=== PATIENT | male | born 1930 | race Caucasian/White ===

== ENCOUNTER 2018-10-17 04:31 | Outpatient (CLI) ==
[2018-10-17 05:06] VITALS: BMI 31.3
== END 2018-10-17 04:37 | disposition critical access hospital (66) ==
LOC: AMBL 04:31
PROVIDERS: ATTEND Family Medicine
DX: R06.02 Shortness of breath (principal); R25.1 Tremor, unspecified; I49.3 Ventricular premature depolarization; Z95.1 Presence of aortocoronary bypass graft

== ENCOUNTER 2018-10-17 04:43 | Emergency (ER) ==
--- NOTE | 2018-10-17 04:55 | ED.PDOC ---
General ED Provider: Dr. DANA GUTIERREZ MD Chief Complaint: Shortness of Air Stated Complaint: hard to breathe Time Seen by Physician: 04:50 Mode of Arrival: Ambulance Information Source: Family Exam Limitations: No limitations Nursing and Triage Documentation Reviewed and Agree: Yes Does patient meet sepsis criteria?: No If yes, has appropriate treatment been initiated?: Yes System Inflammatory Response Syndrome: Temp 101F or Greater, Resp >20/Minute Sepsis Protocol: For patient's 13 years and over: Temp is 96.8 and below OR 101 and greater Pulse >90 BPM Resp >20/minute Acutely Altered Mental Status Are patient's symptoms suggestive of a new infection, such as: -Pneumonia -Skin, Soft Tissue -Endocarditis -UTI -Bone, Joint Infection -Implantable Device -Acute Abdominal Infection -Wound Infection -Meningitis -Blood Stream Catheter Infection -Unknown Review of Systems - Review Of Systems Constitutional: Reports: Chills Eyes: Reports: No symptoms Ears, Nose, Mouth, Throat: Reports: No symptoms Respiratory: Reports: Cough, Short of air Cardiac: Reports: No symptoms GI: Reports: No symptoms : Reports: No symptoms Musculoskeletal: Reports: No symptoms Skin: Reports: No symptoms Neurological: Reports: No symptoms Endocrine: Reports: No symptoms Hematologic/Lymphatic: Reports: No symptoms All Other Systems: Reviewed and Negative Past Medical History - Past Medical History Previously Healthy: Yes Endocrine: Reports: None 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, Other (s/p CABG) Respiratory: Reports: None Hematological: Reports: None Gastrointestinal: Reports: None Genitourinary: Reports: None Neuro/Psych: Reports: None Musculoskeletal: Reports: None Cancer: Reports: None - Surgical History General Surgical History: Reports: CABG - Family History Family History: Reports: Unknown - Social History Smoking Status: Former smoker Physical Exam - Physical Exam Appearance: Well-appearing, Obese Ill-appearing: Mild Pain Distress: None Eyes: MIHAELA, EOMI, Conjunctiva clear ENT: Ears normal, Nose normal, Oropharynx normal Neck: Supple Respiratory: Breath sounds diminished, Wheezes Cardiovascular: RRR, Pulses normal, No rub, No murmur GI/: Soft, Nontender, No masses, Bowel sounds normal, No Organomegaly Musculoskeletal: Normal strength, ROM intact, No edema, No calf tenderness Skin: Warm, Dry, Normal color Neurological: Sensation intact, Motor intact, Reflexes intact, Cranial nerves intact, Alert, Oriented Psychiatric: Affect appropriate, Mood appropriate Critical Care Note - Critical Care Note Total Time (mins): 0 Course - Course Hematology/Chemistry: 10/17/18 05:10 10/17/18 05:10 Orders, Labs, Meds: Lab Review 10/17/18 10/17/18 10/17/18 05:10 05:10 05:10 WBC 10.90 H RBC 5.35 Hgb 16.3 Hct 48.7 MCV 91.0 MCH 30.5 MCHC 33.5 RDW Coeff of Rommel 12.1 Plt Count 117 L Immature Gran % (Auto) 0.4 Neut % (Auto) 88.6 Lymph % (Auto) 5.8 L Knox % (Auto) 4.4 Eos % (Auto) 0.6 Baso % (Auto) 0.2 Immature Gran # (Auto) 0.0 Neut # (Auto) 9.7 H Lymph # (Auto) 0.6 Knox # (Auto) 0.5 Eos # (Auto) 0.1 Baso # (Auto) 0.0 PT INR Sodium 137.6 Potassium 3.76 Chloride 98.9 Carbon Dioxide 27.0 Anion Gap 15.46 BUN 19.5 Creatinine 1.15 H Estimated GFR (MDRD) 60.00 BUN/Creatinine Ratio 16.95 Glucose 118.3 H Calcium 9.19 Troponin I < 0.012 Urine Color Urine Clarity Urine pH Ur Specific Barnum Urine Protein Urine Glucose (UA) Urine Ketones Urine Blood Urine Nitrite Urine Bilirubin Urine Urobilinogen Ur Leukocyte Esterase 10/17/18 10/17/18 05:20 05:40 WBC RBC Hgb Hct MCV MCH MCHC RDW Coeff of Rommel Plt Count Immature Gran % (Auto) Neut % (Auto) Lymph % (Auto) Knox % (Auto) Eos % (Auto) Baso % (Auto) Immature Gran # (Auto) Neut # (Auto) Lymph # (Auto) Knox # (Auto) Eos # (Auto) Baso # (Auto) PT 10.0 INR 1.00 Sodium Potassium Chloride Carbon Dioxide Anion Gap BUN Creatinine Estimated GFR (MDRD) BUN/Creatinine Ratio Glucose Calcium Troponin I Urine Color Yellow Urine Clarity Clear Urine pH 6.0 Ur Specific Barnum 1.020 Urine Protein Negative Urine Glucose (UA) Negative Urine Ketones Negative Urine Blood Negative Urine Nitrite Negative Urine Bilirubin Negative Urine Urobilinogen 0.2 Ur Leukocyte Esterase Negative Orders Category Date Time Status ABG DRAW REQUEST Routine CARDIO 10/17/18 04:55 Ordered ABG DRAW REQUEST Stat CARDIO 10/17/18 04:45 Ordered ABG DRAW REQUEST Stat CARDIO 10/17/18 04:55 Ordered EKG-(ED ONLY) Stat CARDIO 10/17/18 05:13 Completed NEBULIZER TREATMENT Stat CARDIO 10/17/18 05:36 Ordered NEBULIZER TREATMENT Stat CARDIO 10/17/18 05:37 Ordered IV [ED IV/MEDIPORT/POWERPORT] .ONCE EMERGENCY 10/17/18 05:47 Active BLOOD CULTURE (ED ONLY) Stat LAB 10/17/18 05:10 Received BMP [BASIC METABOLIC PANEL] Stat LAB 10/17/18 05:10 Completed CBC W/ AUTO DIFF Stat LAB 10/17/18 05:10 Completed PT WITH INR Stat LAB 10/17/18 05:40 Completed TROPONIN I Stat LAB 10/17/18 05:10 Completed UA [URINALYSIS C & S IF INDICATED] Stat LAB 10/17/18 05:20 Completed 0.9 % Sodium Chloride [Saline Flush] MEDS 10/17/18 05:47 Ordered 1 syr IVF PRN PRN Acetaminophen [Tylenol] MEDS 10/17/18 06:30 Discontinued 650 mg PO ONCE STA Albuterol Sulfate 0.042% Neb [Albuterol 0.042% Neb] MEDS 10/17/18 05:36 Discontinued 1 vial NEB ONCE STA Albuterol Sulfate 0.042% Neb [Albuterol 0.042% Neb] MEDS 10/17/18 05:36 Discontinued 1 vial NEB ONCE STA Albuterol Sulfate 0.083% Neb [Albuterol 0.083% Neb] MEDS 10/17/18 05:50 Discontinued 1 vial NEB .STK-MED ONE Ceftriaxone Sodium [Rocephin] MEDS 10/17/18 05:53 Discontinued 1 gm .ROUTE .STK-MED ONE Ceftriaxone Sodium [Rocephin] 1 gm MEDS 10/17/18 05:44 Discontinued 0.9 % Sodium Chloride [Sodium Chloride] 50 ml IV ONCE Methylprednisolone Sod Succ/Pf [Solu-Medrol 125 mg] MEDS 10/17/18 05:52 Discontinued 125 mg IVP ONCE STA CXR [CHEST, 1V AP ONLY] Stat RADS 10/17/18 04:56 Completed Medications Generic Name Dose Route Start Last Admin Trade Name Freq PRN Reason Stop Dose Admin Sodium Chloride 1 syr 10/17/18 05:47 10/17/18 06:03 Saline Flush IVF 1 syr PRN PRN Administration To flush IV Discontinued Medications Generic Name Dose Route Start Last Admin Trade Name Radha PRN Reason Stop Dose Admin Acetaminophen 650 mg 10/17/18 06:30 Tylenol PO 10/17/18 06:31 ONCE STA Albuterol Sulfate 1 vial 10/17/18 05:36 Albuterol 0.042% [facility] 10/17/18 05:37 ONCE STA Albuterol Sulfate 1 vial 10/17/18 05:36 Albuterol 0.042% Neb [facility] 10/17/18 05:37 ONCE STA Ceftriaxone Sodium 1 gm/ 50 mls @ 75 mls/hr 10/17/18 05:44 10/17/18 06:09 Sodium Chloride IV 10/17/18 06:23 75 mls/hr ONCE STA Administration Methylprednisolone Sodium Succinate 125 mg 10/17/18 05:52 10/17/18 06:02 Solu-Medrol 125 Mg IVP 10/17/18 05:53 125 mg ONCE STA Administration Vital Signs: Temp Pulse Resp BP Pulse Ox 10/17/18 05:01 101.7 F H 92 H 32 H 187/117 H 89 L Departure - Departure Time of Disposition: 06:45 Disposition: HOME SELF-CARE Discharge Problem: Pneumonia Qualifiers: Pneumonia type: due to unspecified organism Laterality: bilateral Lung location : lower lobe of lung Qualified Code(s): J18.1 - Lobar pneumonia, unspecified organism Condition: Good Pt referred to PMD for follow-up: Yes IPMP verified?: No Allergies/Adverse Reactions: Allergies No Known Allergies Allergy (Unverified 10/17/18 05:15) Home Medications: Ambulatory Orders Aspirin [Aspirin EC] 81 mg PO DAILY 10/17/18 Simvastatin [Zocor] 40 mg PO DAILY 10/17/18 Triamterene/Hydrochlorothiazid [Triamterene-Hctz 37.5-25 mg Cp] 1 tab PO BID Transfer Form Completed: No Disposition Discussed With: Patient, Family
[2018-10-17 05:06] VITALS: BMI 31.3
[2018-10-17] MEDS ORDERED: ALBUTEROL 0.042% NEB NEB STA ×2 (05:36)
[2018-10-17] MEDS ORDERED: ROCEPHIN 1 GM in SODIUM CHLORIDE 50 ML IV STA (05:44)
--- NOTE | 2018-10-17 05:47 | DI ---
EXAM: Chest, single view, 10/17/2018 HISTORY: Shortness of breath and wheezing COMPARISON: None. FINDINGS / IMPRESSION: Cardiomediastinal contours appear at the upper limits of normal. Postoperati ve changes of the mediastinum. Patchy interstitial infiltrate extends through both lungs. Dense opacity within the central lower as pect of the left lung. These findings may represent a combination of atelectasis, edema and/or pneum onia. Left-sided pleural effusion is not excluded. No pneumothorax.
[2018-10-17] MEDS ORDERED: ALBUTEROL 0.083% NEB NEB ONE (05:50)
[2018-10-17] MEDS ORDERED: SOLU-MEDROL 125 MG IVP STA (05:52)
[2018-10-17] MEDS ORDERED: ROCEPHIN ONE (05:53)
[2018-10-17] MEDS ORDERED: TYLENOL PO STA (06:30)
[2018-10-17 06:32] VITALS: BP 173/72; TEMP 101.6
[2018-10-17] MEDS ORDERED: ALBUTEROL 0.083% NEB NEB STA (06:34)
== END 2018-10-17 07:02 | disposition home or self-care (01) ==
LOC: ED 04:43
DX: J18.1 Lobar pneumonia, unspecified organism (principal); R06.02 Shortness of breath; I25.810 Atherosclerosis of coronary artery bypass graft(s) without angina pectoris; Z79.899 Other long term (current) drug therapy
CPT/HCPCS: 36415; 80048; 81001; 82803; 84484; 85025; 85610; 87040; 93005; 93010; 94640; 96365; 99283